=== PATIENT | female | born 1960 | race Caucasian/White ===

== ENCOUNTER 2016-11-30 21:02 | Outpatient (CLI) | END 2016-11-30 21:03 | disposition home or self-care (01) ==

== ENCOUNTER 2017-03-10 07:33 | Outpatient (CLI) | payer OTHER | END 2017-03-10 07:34 | disposition home or self-care (01) | DX: R73.9 Hyperglycemia, unspecified (principal); E78.5 Hyperlipidemia, unspecified ==

== ENCOUNTER 2017-05-02 10:59 | Outpatient (CLI) | payer OTHER | END 2017-05-02 11:00 | disposition home or self-care (01) | LOC: LAB 10:59 | PROVIDERS: ATTEND Internal Medicine | DX: R07.9 Chest pain, unspecified (principal); R00.1 Bradycardia, unspecified | CPT/HCPCS: 36415; 84484 ==

== ENCOUNTER 2017-08-30 03:10 | Outpatient (CLI) | payer OTHER | END 2017-08-30 03:11 | disposition critical access hospital (66) | LOC: EMS 03:10 | PROVIDERS: ATTEND Surgery | DX: R07.9 Chest pain, unspecified (principal); M54.9 Dorsalgia, unspecified; R10.13 Epigastric pain | CPT/HCPCS: A0425; A0427 ==

== ENCOUNTER 2017-08-30 03:33 | Emergency (ER) | payer OTHER ==
[2017-08-30] MEDS ORDERED: FAMOTIDINE 20 MG/2 ML VIAL IVP STA (03:44)
[2017-08-30] MEDS ORDERED: MAG HYDROX/AL HYDROX/SIMETH 30 ML UDC PO STA (03:44)
[2017-08-30] MEDS ORDERED: LIDOCAINE VISCOUS 2% 15 ML UDC MM STA (03:44)
[2017-08-30] MEDS ORDERED: MAG HYDROX/AL HYDROX/SIMETH 30 ML UDC ONE ×2 (03:52→03:54)
[2017-08-30] MEDS ORDERED: ONDANSETRON 4 MG/2 ML VIAL ONE (03:52)
[2017-08-30] MEDS ORDERED: LIDOCAINE VISCOUS 2% 15 ML UDC MM ONE (03:52)
[2017-08-30] MEDS ORDERED: FAMOTIDINE 20 MG/2 ML VIAL ONE (03:53)
[2017-08-30] MEDS: ONDANSETRON 4 MG/2 ML VIAL IVP STA ×2 (03:56→04:01)
[2017-08-30 04:26] LABS: ALBUMIN/GLOBULIN RATIO 1.3 (1.0-2.2); CALCIUM 9.2 mg/dL (8.5-10.3); CREATININE 0.9 mg/dL (0.4-1.0); POTASSIUM 4.7 mmol/L (3.5-5.0); TOTAL PROTEIN 6.8 g/dL (6.7-8.2)
--- NOTE | 2017-08-30 04:38 | XRAY Preliminary Report ---
Exam: XR Chest 2 View PA/LAT IMPRESSION: Stable negative 2-view chest radiography. [facility] SITE ID: [id number]
--- NOTE | 2017-08-30 04:41 | XRAY Report ---
EXAM: CHEST RADIOGRAPHY EXAM DATE: 08/30/2017 04:25 AM. CLINICAL HISTORY: Cough and epigastric pain COMPARISON: 11/30/2016, 01/01/2010. TECHNIQUE: 2 views. FINDINGS: Lungs/Pleura: No focal opacities evident. No pleural effusion. No pneumothorax. Normal volumes. Mediastinum: Heart and mediastinal contours are unremarkable. Other: None. IMPRESSION: Stable negative 2-view chest radiography. [facility] Referring Provider Line: [phone] SITE ID: [id number]
[2017-08-30 04:42] LABS: BASOPHILS # (AUTO) 0.1 10^3/uL (0.0-0.1); BASOPHILS % (AUTO) 1.1 %; EOSINOPHILS # (AUTO) 0.1 10^3/uL (0.0-0.7); EOSINOPHILS % (AUTO) 0.8 %; HCT - HEMATOCRIT 42.7 % (37.0-47.0); HGB - HEMOGLOBIN 14.2 g/dL (12.0-16.0); LYMPHOCYTES # (AUTO) 1.3 10^3/uL (1.5-3.5); LYMPHOCYTES % (AUTO) 13.6 %; MEAN CORPUSCULAR HEMOGLOBIN 29.4 pg (27.0-31.0); MEAN CORPUSCULAR HGB CONC 33.2 g/dL (32.0-36.0); MEAN CORPUSCULAR VOLUME 88.4 fL (81.0-99.0); MEAN PLATELET VOLUME 8.5 fL (7.9-10.8); MONOCYTES # (AUTO) 0.6 10^3/uL (0.0-1.0); MONOCYTES % (AUTO) 6.6 %; NEUTROPHILS # (AUTO) 7.3 10^3/uL (1.5-6.6); NEUTROPHILS % (AUTO) 77.9 %; RED BLOOD COUNT 4.83 10^6/uL (4.20-5.40); UNCORRECTED WHITE BLOOD COUNT 9.3 x10^3/uL; WHITE BLOOD COUNT 9.3 x10^3/uL (4.8-10.8)
[2017-08-30] MEDS ORDERED: SODIUM CHLORIDE 0.9% 1,000 ML IV ONE (04:56)
[2017-08-30] MEDS ORDERED: IOPAMIDOL-300 100 ML VIAL ONE (05:09)
[2017-08-30] MEDS ORDERED: IOPAMIDOL-300 100 ML VIAL IVP ONE (05:40)
--- NOTE | 2017-08-30 05:59 | CT Preliminary Report ---
Exam: CT Abdomen/Pelvis W/ IMPRESSION: 1. No acute inflammatory or obstructive process seen in the abdomen or pelvis. No CT evidence of burr creatitis but this does not exclude the clinical diagnosis. 2. Mild post cholecystectomy biliary ductal dilatation is probably a normal variant. Correlation with direct bilirubin suggested. 3. Post hysterectomy. [facility] SITE ID: [id number]
--- NOTE | 2017-08-30 06:05 | CT Report ---
EXAM: CT ABDOMEN AND PELVIS EXAM DATE: 08/30/2017 05:44 AM. CLINICAL HISTORY: Epigastric pain with elevated lipase. COMPARISONS: 02/28/2012. TECHNIQUE: Routine helical CT imaging was performed through the abdomen and pelvis. IV contrast: 100 mL Isovue 300. Enteric contrast: No . Reconstructions: Coronal and sagittal. In accordance with CT protocol optimization, one or more of the following dose reduction techniques w ere utilized for this exam: automated exposure control, adjustment of mA and/or KV based on patient s ize, or use of iterative reconstructive technique. FINDINGS: Lung Bases: Unremarkable. Liver: Unremarkable. No suspicious masses. Gallbladder/Bile Ducts: Mild post-cholecystectomy bile duct dilatation is probably a normal variant. Spleen: Unremarkable. Pancreas: Unremarkable. Adrenal Glands: Unremarkable. Kidneys: Unremarkable. No suspicious masses or hydronephrosis. Peritoneal Cavity/Bowel: No bowel obstruction or inflammatory process seen. No free air or significan t free fluid. No masses or adenopathy. The appendix is normal. No excessive stool burden. Pelvic Organs: Post hysterectomy with no adnexal masses seen. The bladder appears within normal limit s. Vasculature: No aneurysms or other significant abnormality. Bones: No significant abnormality. Other: None. IMPRESSION: 1. No acute inflammatory or obstructive process seen in the abdomen or pelvis. No CT evidence of burr creatitis but this does not exclude the clinical diagnosis. 2. Mild post-cholecystectomy biliary ductal dilatation is probably a normal variant. Correlation with direct bilirubin suggested. 3. Post-hysterectomy. [facility] Referring Provider Line: [phone] SITE ID: [id number]
--- NOTE | 2017-08-30 06:28 | ED Physician Documentation ---
PD HPI ABD PAIN - Stated complaint Stated Complaint: CP,COUGH - Chief complaint Chief Complaint: Cardiac - History obtained from History obtained from: Patient, Family - History of Present Illness Timing - onset: Today Timing - details: Gradual onset, Still present Quality: Cramping, Aching Location: Epigastric Radiation: Lower back Worsened by: Position, Palpation Associated symptoms: Nausea. No: Fever, Vomiting, Hematemesis, Diarrhea, Constipation, Melena Similar symptoms before: Work up / diagnostics, Treatment Recently seen: Not recently seen - Additional information Additional information: Patient is a 56 year old female who is presenting to the emergency department for epigastric pain. Patient states this evening she woke up from sleep with pain in her epigastric region. Patient stated that she called her daughter who is a nurse who stated that she should come to get checked out. Patient states that she had not been feeling well over the last week while she was out of town on vacation. Review of Systems Constitutional: denies: Fever, Chills Eyes: denies: Decreased vision, Photophobia Ears: denies: Ear pain, Drainage/discharge Nose: reports: Rhinorrhea / runny nose, Congestion Throat: denies: Sore throat Respiratory: reports: Cough. denies: Wheezing GI: reports: Abdominal Pain, Nausea. 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 HEENT: Tonsil/Adenoidectomy - Present Medications Home Medications: Ambulatory Orders Medication Instructions Recorded Confirmed Ondansetron Odt [Zofran] 4 mg TL Q6H PRN #14 tablet 08/30/17 - Allergies Allergies/Adverse Reactions: Allergies Allergy/AdvReac Type Severity Reaction Status Date / Time No Known Drug Allergies Allergy Verified 08/30/17 03:42 - Social History Does the pt smoke?: No Smoking Status: Never smoker Does the pt drink ETOH?: Yes Does the pt have substance abuse?: No - Immunizations Immunizations are current?: Yes - POLST Patient has POLST: No PD ED PE NORMAL - Vitals Vital signs reviewed: Yes - General General: Alert and oriented X 3, No acute distress - HEENT HEENT: Atraumatic, PERRL - Neck Neck: Supple, no meningeal sign, No JVD - Cardiac Cardiac: RRR, No murmur - Respiratory Respiratory: No respiratory distress, Clear bilaterally - Abdomen Abdomen: Soft - Derm Derm: Normal color, Warm and dry, No rash - Extremities Extremities: No deformity, No tenderness to palpate - Neuro Neuro: Alert and oriented 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 No: Distended, Rebound, Guarding Results - Vitals Vitals: Vital Signs - 24 hr 08/30/17 08/30/17 08/30/17 03:34 04:17 04:56 Temperature 36.6 C Heart Rate 52 L 48 L 53 L Respiratory 16 16 16 Rate Blood Pressure 119/68 108/67 100/62 O2 Saturation 97 97 94 08/30/17 08/30/17 08/30/17 06:10 06:23 06:43 Temperature 36.1 C L Heart Rate 53 L 60 52 L Respiratory 16 15 16 Rate Blood Pressure 117/69 115/63 O2 Saturation 97 95 97 Oxygen O2 Source Room air - EKG (time done) 0402 Rate: Rate (enter#) (46) Rhythm: Sinus bradycardia [place]: Normal Intervals: Normal AR QRS: Normal Ischemia: Normal ST segments Compare to prior EKG: Unchanged from prior EKG - Labs Labs: Laboratory Tests 08/30/17 08/30/17 08/30/17 04:06 04:06 04:34 WBC 9.3 RBC 4.83 Hgb 14.2 Hct 42.7 MCV 88.4 MCH 29.4 MCHC 33.2 RDW 13.0 Plt Count 195 MPV 8.5 Neut # 7.3 H Lymph # 1.3 L [place] # 0.6 Eos # 0.1 Baso # 0.1 Absolute Nucleated RBC 0.00 Nucleated RBC % 0.0 Sodium 140 Potassium 4.7 Chloride 105 Carbon Dioxide 27 Anion Gap 8.0 BUN 18 Creatinine 0.9 Estimated GFR (MDRD) 65 L Glucose 126 H Calcium 9.2 Total Bilirubin 1.0 AST 254 H ALT 145 H Alkaline Phosphatase 82 Troponin I < 0.04 B-Natriuretic Peptide Total Protein 6.8 Albumin 3.9 Globulin 2.9 Albumin/Globulin Ratio 1.3 Lipase 286 H 08/30/17 04:34 WBC RBC Hgb Hct MCV MCH MCHC RDW Plt Count MPV Neut # Lymph # [place] # Eos # Baso # Absolute Nucleated RBC Nucleated RBC % Sodium Potassium Chloride Carbon Dioxide Anion Gap BUN Creatinine Estimated GFR (MDRD) Glucose Calcium Total Bilirubin AST ALT Alkaline Phosphatase Troponin I B-Natriuretic Peptide 17 Total Protein Albumin Globulin Albumin/Globulin Ratio Lipase - Rads (name of study) ct abdomen and pelvis Radiology: Final report received (no signs of pancreatitis) PD MEDICAL DECISION MAKING - ED course Complexity details: reviewed old records, reviewed results, re-evaluated patient , considered differential, d/w patient, d/w family ED course: Patient was seen and examined at bedside. IV access was gained and labs were drawn. ekg was performed and was within normal limits. chest x-ray was also negative. When patient's labs came back transaminitis was found and mild elevation of lipase. patient did admit to drinking but not all the time. CT was ordered. patient's CT results were within normal limits. Patient and family were given the option of admission but patient stated that she would rather try going home. Patient was discharged in stable condition. Departure - Departure Disposition: 01 Home, Self Care Clinical Impression: Transaminitis Condition: Good Instructions: ED Pancreatitis Follow-Up: Cyril Jim MD [Primary Care Provider] - Within 1 week Prescriptions: Ondansetron Odt [Zofran] 4 mg TL Q6H PRN #14 tablet PRN Reason: Nausea / Vomiting Comments: Your diagnostics showed an elevation in your liver and pancrease enzymes as well as your kidney function. It is important that you take the zofran for nausea and stay well hydrated. You will need to follow up with your pmd this week or early next week to recheck the blood work. You should avoid any alcohol or tylenol. You may return to the emergency department at any time for new, worsening or uncontrollable symptoms. Discharge Date/Time: 08/30/17 06:44
[2017-08-30 06:44] VITALS: BP 115/63
== END 2017-08-30 06:44 | disposition home or self-care (01) ==
LOC: EDUNIT# → ED 03:33 → SUPCPDRO 03:33 → ED 06:44
DX: R74.0 Nonspecific elevation of levels of transaminase and lactic acid dehydrogenase [LDH] (principal); R74.8 Abnormal levels of other serum enzymes; I10 Essential (primary) hypertension; E78.00 Pure hypercholesterolemia, unspecified
CPT/HCPCS: 36415; 71020; 74177; 80053; 83690; 83880; 84484; 85025; 93005; 96361; 96374; 99284; A9270; Q9967

== ENCOUNTER 2017-09-02 09:45 | Outpatient (CLI) | payer OTHER ==
[2017-09-02 18:13] LABS: BASOPHILS # (AUTO) 0.1 10^3/uL (0.0-0.1); BASOPHILS % (AUTO) 0.9 %; EOSINOPHILS % (AUTO) 0.7 %; HCT - HEMATOCRIT 47.3 % (37.0-47.0); HGB - HEMOGLOBIN 15.6 g/dL (12.0-16.0); LYMPHOCYTES # (AUTO) 1.5 10^3/uL (1.5-3.5); LYMPHOCYTES % (AUTO) 23.9 %; MEAN CORPUSCULAR HEMOGLOBIN 29.7 pg (27.0-31.0); MEAN CORPUSCULAR HGB CONC 32.9 g/dL (32.0-36.0); MEAN CORPUSCULAR VOLUME 90.2 fL (81.0-99.0); MEAN PLATELET VOLUME 9.2 fL (7.9-10.8); MONOCYTES # (AUTO) 0.3 10^3/uL (0.0-1.0); MONOCYTES % (AUTO) 5.1 %; NEUTROPHILS # (AUTO) 4.4 10^3/uL (1.5-6.6); NEUTROPHILS % (AUTO) 69.4 %; NUCLEATED RED BLOOD CELLS AUTO 0.1 /100WBC; RED BLOOD COUNT 5.25 10^6/uL (4.20-5.40); RED CELL DISTRIBUTION WIDTH 13.2 % (12.0-15.0); UNCORRECTED WHITE BLOOD COUNT 6.3 x10^3/uL; WHITE BLOOD COUNT 6.3 x10^3/uL (4.8-10.8)
[2017-09-02 18:46] LABS: ALBUMIN/GLOBULIN RATIO 1.4 (1.0-2.2); AMYLASE 32 U/L (28-100); BILIRUBIN,TOTAL 0.7 mg/dL (0.2-1.0); BUN - BLOOD UREA NITROGEN 13 mg/dL (6-20); CALCIUM 9.8 mg/dL (8.5-10.3); CARBON DIOXIDE - CO2 28 mmol/L (21-32); CHLORIDE 105 mmol/L (101-111); CREATININE 0.9 mg/dL (0.4-1.0); GFR - MDRD 65 (>89); GLUCOSE 103 mg/dL (70-100); LIPASE 21 U/L (22-51); POTASSIUM 4.2 mmol/L (3.5-5.0); SODIUM 139 mmol/L (135-145); TOTAL PROTEIN 7.3 g/dL (6.7-8.2)
== END 2017-09-02 09:46 | disposition home or self-care (01) ==
LOC: LAB.F 09:45
PROVIDERS: ATTEND Physician Assistant Medical
DX: K86.1 Other chronic pancreatitis (principal); R94.5 Abnormal results of liver function studies
CPT/HCPCS: 36415; 80053; 82150; 83690; 85025; 85651; 86140

== ENCOUNTER 2017-09-05 08:32 | Outpatient (CLI) | payer OTHER ==
--- NOTE | 2017-09-05 17:28 | MRI Report ---
EXAM: MR ABDOMEN WITHOUT CONTRAST (MR CHOLANGIOPANCREATOGRAPHY) EXAM DATE: 09/05/2017 09:31 AM. CLINICAL HISTORY: Chronic pancreatitis. Prior cholecystectomy. COMPARISON: Abdominal CT 08/30/2017 and abdominal ultrasound 02/28/2012. TECHNIQUE: Multiplanar breath-hold T1 and T2 sequences obtained through the abdomen on an MR scanner. Dedicated 2D and 3D MRCP sequences obtained through the biliary and pancreatic ducts. No intravenous contrast given. FINDINGS: Lung Bases: The lung bases are clear. Liver: The liver has normal size, morphology and signal. No evidence of mass. The intrahepatic bile d ucts appear normal. There are couple of tiny liver cysts measuring up to 4 mm in left upper lobe. CBD: 11 mm common hepatic duct. 6 mm common bile duct. No choledocholithiasis. Gallbladder: Surgically absent. Pancreas: Normal 2 mm pancreatic duct. There are at least 10 scattered tiny cystic foci within the p ancreas measuring up to 3 mm within pancreatic tail. 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 No peripancreatic darlene ma. No pseudocyst. Spleen: The spleen appears normal. Kidneys and Adrenals: The kidneys appear normal with no mass or hydronephrosis. The adrenals appear n ormal. Bowel: The small bowel and colon appear normal with no inflammation or obstruction. Retroperitoneum: The retroperitoneal structures appear normal with no mass or lymphadenopathy. IMPRESSION: 1. Prior cholecystectomy. No choledocholithiasis. Mild common hepatic ductal dilatation measuring up to 11 mm is probably an incidental finding related to prior cholecystectomy. 2. 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 No shahrzad n pancreatic ductal dilatation or suspicious mass evident. Recommend one-year follow-up MRCP. Follow-up recommendation based on "Managing incidental findings on abdominal CT white paper", Journal of [employer] 2010; 7:930012. [facility] Referring Provider Line: [phone] SITE ID: [id number]
== END 2017-09-05 08:33 | disposition home or self-care (01) ==
LOC: DI 08:32
PROVIDERS: ATTEND Family Medicine
DX: K86.1 Other chronic pancreatitis (principal); Z90.49 Acquired absence of other specified parts of digestive tract
CPT/HCPCS: 74181

== ENCOUNTER 2018-05-03 07:17 | Outpatient (CLI) | payer OTHER ==
[2018-05-03 10:59] LABS: EOSINOPHILS # (AUTO) 0.1 10^3/uL (0.0-0.7); EOSINOPHILS % (AUTO) 1.9 %; HGB - HEMOGLOBIN 14.3 g/dL (12.0-16.0); LYMPHOCYTES # (AUTO) 1.3 10^3/uL (1.5-3.5); LYMPHOCYTES % (AUTO) 30.5 %; MEAN CORPUSCULAR HEMOGLOBIN 29.4 pg (27.0-31.0); MEAN CORPUSCULAR HGB CONC 33.5 g/dL (32.0-36.0); MEAN CORPUSCULAR VOLUME 87.6 fL (81.0-99.0); MEAN PLATELET VOLUME 9.3 fL (7.9-10.8); MONOCYTES # (AUTO) 0.3 10^3/uL (0.0-1.0); MONOCYTES % (AUTO) 7.6 %; NEUTROPHILS # (AUTO) 2.6 10^3/uL (1.5-6.6); PLT - PLATELET COUNT 195 10^3/uL (130-450); RED BLOOD COUNT 4.86 10^6/uL (4.20-5.40); RED CELL DISTRIBUTION WIDTH 13.3 % (12.0-15.0); WHITE BLOOD COUNT 4.4 x10^3/uL (4.8-10.8)
[2018-05-03 11:16] LABS: ALBUMIN 4.1 g/dL (3.2-5.5); ALBUMIN/GLOBULIN RATIO 1.5 (1.0-2.2); ALKALINE PHOSPHATASE 54 IU/L (42-121); ALT ALANINE AMINOTRANSFERASE 35 IU/L (10-60); AST ASPARTATE AMINOTRANSFERASE 29 IU/L (10-42); BILIRUBIN,TOTAL 0.8 mg/dL (0.2-1.0); BUN - BLOOD UREA NITROGEN 23 mg/dL (6-20); CALCIUM 9.3 mg/dL (8.5-10.3); CARBON DIOXIDE - CO2 26 mmol/L (21-32); CHLORIDE 104 mmol/L (101-111); CHOL/HDL RATIO 3.2 (<4.4); CHOLESTEROL 185 mg/dL; CREATININE 0.9 mg/dL (0.4-1.0); GFR - MDRD 65 (>89); GLUCOSE 99 mg/dL (70-100); HDL CHOLESTEROL 58 mg/dL; LDL CHOLESTEROL,CALCULATED 116 mg/dL; LIPASE 24 U/L (22-51); SODIUM 138 mmol/L (135-145); TOTAL PROTEIN 6.8 g/dL (6.7-8.2); VLDL CHOLESTEROL 11 mg/dL
[2018-05-03 11:24] LABS: THYROID STIMULATING HORMONE 3.27 uIU/mL (0.34-5.60)
== END 2018-05-03 07:18 | disposition home or self-care (01) ==
LOC: LAB.F 07:17
PROVIDERS: ATTEND Physician Assistant Medical
DX: K86.1 Other chronic pancreatitis (principal); E78.5 Hyperlipidemia, unspecified; E55.9 Vitamin D deficiency, unspecified; R53.83 Other fatigue
CPT/HCPCS: 36415; 80053; 80061; 82306; 82607; 83690; 83721; 84443; 85025

== ENCOUNTER 2018-05-08 15:13 | Outpatient (CLI) | payer OTHER ==
--- NOTE | 2018-05-10 15:07 | Mammography Report ---
Procedure Date: 05/08/2018 Accession Number: [id number] / [id number] Procedure: CARLOS - Screening Mammo Dig Bilat CPT Code: FULL RESULT: EXAM: Screening Mammo Dig Bilat DATE: 05/08/2018 3:30 PM CLINICAL HISTORY: 57-year-old for screening COMPARISON: 11/06/2012, 07/07/2010 TECHNIQUE: Bilateral CC and MLO views were obtained. FINDINGS: The breasts demonstrate diffuse fatty replacement bilaterally. In the left upper central breast, there is a possible nodule. Further evaluation with spot compression views and possible ultrasound is recommended. No suspicious masses, clustered microcalcifications, or regions of architectural distortion are identified in the right breast. IMPRESSION: Incomplete examination RECOMMENDATION: Additional evaluation as above. BIRADS CATEGORY 0: Incomplete examination STANDARD QUALIFYING STATEMENTS: 1. This examination was reviewed with the aid of Computer-Aided Detection (CAD). 2. A negative or benign imaging report should not delay biopsy if clinically suspicious findings are present. Consider surgical consultation if warrented. More than 5% of cancers are not identified by imaging. 3. Dense breasts may obscure an underlying neoplasm.
== END 2018-05-08 15:14 | disposition home or self-care (01) ==
LOC: DI 15:13
PROVIDERS: ATTEND Physician Assistant Medical
DX: Z12.31 Encounter for screening mammogram for malignant neoplasm of breast (principal); R92.8 Other abnormal and inconclusive findings on diagnostic imaging of breast
CPT/HCPCS: 77067

== ENCOUNTER 2018-09-06 07:31 | Outpatient (CLI) | payer OTHER ==
[2018-09-06 11:08] LABS: EOSINOPHILS # (AUTO) 0.1 10^3/uL (0.0-0.7); EOSINOPHILS % (AUTO) 2.2 %; HGB - HEMOGLOBIN 13.7 g/dL (12.0-16.0); LYMPHOCYTES # (AUTO) 1.3 10^3/uL (1.5-3.5); LYMPHOCYTES % (AUTO) 33.8 %; MEAN CORPUSCULAR HEMOGLOBIN 29.6 pg (27.0-31.0); MEAN CORPUSCULAR HGB CONC 33.3 g/dL (32.0-36.0); MEAN CORPUSCULAR VOLUME 88.9 fL (81.0-99.0); MEAN PLATELET VOLUME 9.2 fL (7.9-10.8); MONOCYTES # (AUTO) 0.3 10^3/uL (0.0-1.0); NEUTROPHILS # (AUTO) 2.1 10^3/uL (1.5-6.6); PLT - PLATELET COUNT 209 10^3/uL (130-450); RED BLOOD COUNT 4.64 10^6/uL (4.20-5.40); RED CELL DISTRIBUTION WIDTH 13.2 % (12.0-15.0); WHITE BLOOD COUNT 3.9 x10^3/uL (4.8-10.8)
[2018-09-06 11:24] LABS: ALBUMIN 3.9 g/dL (3.2-5.5); ALBUMIN/GLOBULIN RATIO 1.6 (1.0-2.2); ALKALINE PHOSPHATASE 49 IU/L (42-121); ALT ALANINE AMINOTRANSFERASE 28 IU/L (10-60); AST ASPARTATE AMINOTRANSFERASE 25 IU/L (10-42); BILIRUBIN,TOTAL 0.8 mg/dL (0.2-1.0); BUN - BLOOD UREA NITROGEN 21 mg/dL (6-20); CALCIUM 9.3 mg/dL (8.5-10.3); CARBON DIOXIDE - CO2 26 mmol/L (21-32); CHLORIDE 108 mmol/L (101-111); CHOL/HDL RATIO 2.7 (<4.4); CHOLESTEROL 170 mg/dL; CREATININE 0.8 mg/dL (0.4-1.0); GFR - MDRD 74 (>89); GLUCOSE 106 mg/dL (70-100); HDL CHOLESTEROL 62 mg/dL; LDL CHOLESTEROL,CALCULATED 99 mg/dL; LDL/HDL RATIO 1.6 (<4.4); SODIUM 141 mmol/L (135-145); TOTAL PROTEIN 6.4 g/dL (6.7-8.2); VLDL CHOLESTEROL 9 mg/dL
[2018-09-06 11:50] LABS: HB2 TOTAL 14.4 g/dL; HEMOGLOBIN A1C 0.49 g/dL; HEMOGLOBIN A1C % 5.3 % (4.6-6.2)
== END 2018-09-06 07:32 | disposition home or self-care (01) ==
LOC: LAB.F 07:31
PROVIDERS: ATTEND Physician Assistant
DX: I10 Essential (primary) hypertension (principal); E78.5 Hyperlipidemia, unspecified; R73.9 Hyperglycemia, unspecified
CPT/HCPCS: 36415; 80053; 80061; 83036; 83721; 85025